=== PATIENT | female | born 1970 | race Caucasian/White ===

== ENCOUNTER 2019-02-10 18:19 | Inpatient (IN) | payer SELFPAY ==
[~2019-02-10] VITALS: Ht 167.6 cm; Wt 95.3 kg
--- OUTSIDE RECORDS SUMMARY | 2019-02-10 18:22 | XMS REPORT ---
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 Allergies, Adverse Reactions, Alerts This patient has no known allergies or adverse reactions. Medications This patient has no known medications. Encounters Start Date/Time End Date/Time Encounter Type Admission Type Attending [facility] Care Department Encounter ID 2019-01-06 11:49:00 2019-01-06 11:49:00 Emergency E [id number] 2018-07-17 00:00:00 2018-07-17 00:00:00 Outpatient [facility] [id number] 2018-07-15 00:00:00 2018-07-15 00:00:00 Outpatient [facility] [id number] 2018-06-11 09:24:07 2018-06-11 09:24:07 Outpatient [facility] [id number] 2018-06-11 08:28:03 2018-06-11 08:28:03 Outpatient [facility] [id number] 2018-06-08 00:00:00 2018-06-08 00:00:00 Outpatient [facility] [id number] 2018-06-04 00:00:00 2018-06-04 00:00:00 Outpatient [facility] [id number] 2018-06-03 00:00:00 2018-06-03 00:00:00 Outpatient [facility] [id number] 2018-06-02 09:07:14 2018-06-02 09:07:14 Outpatient [facility] [id number] 2018-06-01 00:00:00 2018-06-01 00:00:00 Outpatient [facility] [id number] 2018-05-27 08:28:38 2018-05-27 08:28:38 Outpatient [facility] [id number] 2018-05-27 08:28:32 2018-05-27 08:28:32 Outpatient [facility] [id number] 2018-05-19 00:00:00 2018-05-19 00:00:00 Outpatient [facility] [id number] 2018-04-28 00:00:00 2018-04-28 00:00:00 Outpatient [facility] [id number] 2018-04-28 00:00:00 2018-04-28 00:00:00 Outpatient [facility] [id number] 2018-04-20 09:12:38 2018-04-20 09:12:38 Outpatient [facility] [id number] 2018-04-20 07:56:55 2018-04-20 07:56:55 Outpatient [facility] [id number] 2018-04-16 00:00:00 2018-04-16 00:00:00 Outpatient [facility] [id number] 2018-04-14 00:00:00 2018-04-14 00:00:00 Outpatient [facility] [id number] 2018-03-30 08:41:25 2018-03-30 08:41:25 Outpatient [facility] [id number] 2018-03-24 00:00:00 2018-03-24 00:00:00 Outpatient [facility] [id number] 2018-03-23 00:00:00 2018-03-23 00:00:00 Outpatient [facility] [id number] 2018-03-21 00:00:00 2018-03-21 00:00:00 Outpatient [facility] [id number] 2018-03-21 00:00:00 2018-03-21 00:00:00 Outpatient [facility] [id number] 2018-03-09 00:00:00 2018-03-09 00:00:00 Outpatient [facility] [id number] 2018-02-17 00:00:00 2018-02-17 00:00:00 Outpatient [facility] [id number] 2018-02-11 00:00:00 2018-02-11 00:00:00 Outpatient [facility] [id number] 2018-01-29 09:48:55 2018-01-29 09:48:55 Outpatient [facility] [id number] 2018-01-29 00:00:00 2018-01-29 00:00:00 Outpatient [facility] [id number] 2018-01-06 09:52:36 2018-01-06 09:52:36 Outpatient [facility] [id number] 2018-01-06 09:48:18 2018-01-06 09:48:18 Outpatient [facility] [id number] 2018-01-06 08:34:47 2018-01-06 08:34:47 Outpatient [facility] [id number] 2018-01-06 00:00:00 2018-01-06 00:00:00 Outpatient [facility] [id number] 2017-12-17 00:00:00 2017-12-17 00:00:00 Outpatient [facility] [id number] 2017-11-21 13:18:45 2017-11-21 13:18:45 Outpatient [facility] [id number] 2017-10-29 00:00:00 2017-10-29 00:00:00 Outpatient [facility] [id number] 2017-10-17 00:00:00 2017-10-17 00:00:00 Outpatient [facility] [id number] 2017-10-01 00:00:00 2017-10-01 00:00:00 Outpatient [facility] [id number] 2017-09-26 00:00:00 2017-09-26 00:00:00 Outpatient [facility] [id number] 2017-09-25 14:19:49 2017-09-25 14:19:49 Outpatient [facility] [id number] 2017-09-24 08:40:30 2017-09-24 08:40:30 Outpatient [facility] [id number] 2017-09-12 00:00:00 2017-09-12 00:00:00 Outpatient [facility] [id number] 2017-09-11 07:52:20 2017-09-11 07:52:20 Outpatient [facility] [id number] 2017-09-11 00:00:00 2017-09-11 00:00:00 Outpatient [facility] [id number] 2017-09-10 00:00:00 2017-09-10 00:00:00 Outpatient [facility] [id number] 2017-09-08 00:00:00 2017-09-08 00:00:00 Outpatient [facility] [id number] 2017-08-25 08:27:54 2017-08-25 08:27:54 Outpatient [facility] [id number] 2017-08-25 07:13:17 2017-08-25 07:13:17 Outpatient [facility] [id number] 2017-08-11 15:45:10 2017-08-11 15:45:10 Outpatient [facility] [id number] 2017-08-06 00:00:00 2017-08-06 00:00:00 Outpatient [facility] [id number] 2017-07-29 00:00:00 2017-07-29 00:00:00 Outpatient [facility] [id number] 2017-07-24 00:00:00 2017-07-24 00:00:00 Outpatient [facility] [id number] 2017-07-10 19:05:00 2017-07-10 19:05:00 Emergency [facility] [id number] 2017-07-10 17:25:39 2017-07-10 17:25:39 Outpatient [facility] [id number] 2017-07-07 13:11:37 2017-07-07 13:11:37 Outpatient [facility] [id number] 2017-07-03 16:54:51 2017-07-03 16:54:51 Outpatient [facility] [id number] 2017-07-03 15:13:52 2017-07-03 15:13:52 Outpatient [facility] [id number] 2017-06-24 07:10:35 2017-06-24 07:10:35 Outpatient [facility] [id number] 2017-06-18 00:00:00 2017-06-18 00:00:00 Outpatient [facility] [id number] 2017-06-11 16:15:53 2017-06-11 16:15:53 Outpatient [facility] [id number] 2017-06-11 15:38:53 2017-06-11 15:38:53 Outpatient [facility] [id number] 2017-05-11 00:00:00 2017-05-11 00:00:00 Outpatient [facility] [id number] 2017-04-30 07:13:24 2017-04-30 07:13:24 Outpatient [facility] [id number] 2017-04-08 07:01:45 2017-04-08 07:01:45 Outpatient [facility] [id number] 2017-04-07 10:11:41 2017-04-07 10:11:41 Outpatient [facility] [id number] 2017-04-02 00:00:00 2017-04-02 00:00:00 Outpatient [facility] [id number] 2017-03-21 14:55:43 2017-03-21 14:55:43 Outpatient [facility] [id number] 2017-03-20 00:00:00 2017-03-20 00:00:00 Outpatient [facility] [id number] 2017-03-18 10:10:14 2017-03-18 10:10:14 Outpatient [facility] [id number] 2017-03-17 15:56:58 2017-03-17 15:56:58 Outpatient [facility] [id number] 2017-03-17 00:00:00 2017-03-17 00:00:00 Outpatient [facility] [id number] 2017-03-07 08:49:00 2017-03-07 08:49:00 Outpatient [facility] [id number] 2017-03-07 00:00:00 2017-03-07 00:00:00 Outpatient [facility] [id number] 2017-02-28 08:48:24 2017-02-28 08:48:24 Outpatient [facility] [id number] 2017-02-28 00:00:00 2017-02-28 00:00:00 Outpatient [facility] [id number] 2017-02-11 00:00:00 2017-02-11 00:00:00 Outpatient [facility] [id number] 2017-01-22 15:11:42 2017-01-22 15:11:42 Outpatient [facility] [id number] 2017-01-16 00:00:00 2017-01-16 00:00:00 Outpatient [facility] [id number] 2017-01-16 00:00:00 2017-01-16 00:00:00 Outpatient [facility] [id number] 2017-01-15 00:00:00 2017-01-15 00:00:00 Outpatient [facility] [id number] 2017-01-07 00:00:00 2017-01-07 00:00:00 Outpatient [facility] [id number] 2017-01-07 00:00:00 2017-01-07 00:00:00 Outpatient [facility] [id number] 2017-01-06 00:00:00 2017-01-06 00:00:00 Outpatient [facility] [id number] 2016-12-27 09:37:44 2016-12-27 09:37:44 Outpatient [facility] [id number] 2016-12-25 00:00:00 2016-12-25 00:00:00 Outpatient [facility] [id number] 2016-12-19 00:00:00 2016-12-19 00:00:00 Outpatient [facility] [id number] 2016-12-16 11:47:59 2016-12-16 11:47:59 Outpatient [facility] [id number] 2016-12-16 11:00:54 2016-12-16 11:00:54 Outpatient [facility] [id number] 2016-12-06 00:00:00 2016-12-06 00:00:00 Outpatient [facility] [id number] 2016-11-25 15:28:34 2016-11-25 15:28:34 Outpatient [facility] [id number] 2016-11-14 07:54:36 2016-11-14 07:54:36 Outpatient [facility] [id number] 2016-11-13 00:00:00 2016-11-13 00:00:00 Outpatient [facility] [id number] 2016-11-05 00:00:00 2016-11-05 00:00:00 Outpatient [facility] [id number] 2016-11-01 00:00:00 2016-11-01 00:00:00 Outpatient [facility] [id number] 2016-10-31 23:20:39 2016-10-31 23:20:39 Emergency [facility] [id number] 2016-10-31 21:53:47 2016-10-31 21:53:47 Emergency [facility] [id number] 2016-10-31 15:01:06 2016-10-31 15:01:06 Outpatient [facility] [id number] 2016-10-31 00:00:00 2016-10-31 00:00:00 Outpatient [facility] [id number] 2016-10-28 00:00:00 2016-10-28 00:00:00 Outpatient [facility] [id number] 2016-10-25 10:47:34 2016-10-25 10:47:34 Outpatient [facility] [id number] 2016-10-08 11:31:45 2016-10-08 11:31:45 Outpatient [facility] [id number]
--- NOTE | 2019-02-10 19:39 | NUR ---
DR. SOLIS IN TRIAGE FOR PT EVAL.
[2019-02-10] MEDS ORDERED: SODIUM CHLORIDE 0.9% 1000ML 1,000 ML IV STA (19:41)
[2019-02-10] MEDS ORDERED: ONDANSETRON HCL INJ 2MG/ML 2ML 2 MG/ML VIAL IV ONE (19:45)
[2019-02-10] MEDS ORDERED: CEFTRIAXONE SOD 1 GM VIAL IV ONE (19:45)
[2019-02-10] MEDS ORDERED: DEXAMETHASONE SOD PHOS 10 MG/1 ML VIAL IV ONE (19:45)
[2019-02-10] MEDS ORDERED: KETOROLAC TROMETHAMINE 30 MG/ML VIAL IV ONE (19:45)
[2019-02-10 20:09] LABS: BILIRUBIN,URINE NEGATIVE (NEGATIVE); COLOR,URINE YELLOW (YELLOW); KETONES,URINE NEGATIVE (NEGATIVE); LEUKOCYTE ESTERASE ,URINE SMALL (NEGATIVE); NITRITE,URINE NEGATIVE (NEGATIVE); PROTEIN,URINE DIPSTICK NEGATIVE (NEGATIVE); URINE UROBILINOGEN 0.2 mg/dL (0.2 - 1)
[2019-02-10 20:11] LABS: CLARITY,URINE HAZY (CLEAR)
[2019-02-10] MEDS ORDERED: CEFTRIAXONE SOD 1 GM/NS 50 ML 50 ML IV ONE (20:15)
[2019-02-10 20:21] LABS: AMORPHOUS SEDIMENT,URINE MODERATE (FEW); BACTERIA,URINE MANY /HPF; EPITHELIAL CELLS,URINE MANY /LPF
--- NOTE | 2019-02-10 21:26 | Diagnostic Imaging Report ---
Examination: CT BRAIN WO CONTRAST History:Headache; ear swelling. Comparison studies:None Technique: Axial images were obtained from the skull base to the vertex. Coronal and sagittal images reconstructed from the axial data. Dose modulation, iterative reconstruction, and/or weight based adjustment of the mA/kV was utilized to reduce the radiation dose to as low as reasonably achievable. Intravenous contrast: None Findings: Scalp: No abnormalities. Bones: No fractures, blastic or lytic lesions. Brain sulci: Appropriate for age. Ventricles: Normal in size and configuration. No hydrocephalus. Extra-axial space: No abnormalities. Parenchyma: No abnormal densities. No masses, hemorrhage, or acute or chronic cortical based vascular insults.. Sellar/suprasellar region: No abnormalities. Craniocervical junction: Patent foramen magnum. No Chiari one malformation. Incidental findings: None. Impression: No intracranial abnormalities. No abnormality in the visualized bilateral external auditory canals or mastoid air cells. Signed by: Dr. Ileana Barillas M.D. on 02/10/2019 9:22 PM
[2019-02-10 21:48] LABS: BASOPHILS % 0.3 % (0.0-1.0); EOSINOPHILS # (AUTO) 0.1 (0.0-0.4); EOSINOPHILS % 1.1 % (0.0-6.0); HEMATOCRIT 40.7 % (34.2-44.1); HEMOGLOBIN 12.8 g/dL (12.0-16.0); LYMPHOCYTES # (AUTO) 2.9 (1.0-3.2); LYMPHOCYTES % 21.8 % (18.0-39.1); MEAN CORPUSCULAR HEMOGLOBIN 27.4 pg (28-32); MEAN CORPUSCULAR HGB CONC 31.4 g/dL (31-35); MONOCYTES # (AUTO) 0.6 (0.2-0.8); MONOCYTES % 4.9 % (4.4-11.3); NEUTROPHILS # (AUTO) 9.4 (2.1-6.9); NEUTROPHILS % 71.7 % (38.7-80.0); PLATELET COUNT 429 x10e3/uL (140-360); RED BLOOD COUNT 4.68 x10e6/uL (3.6-5.1); RED CELL DISTRIBUTION WIDTH 14.3 % (11.7-14.4)
--- NOTE | 2019-02-10 21:49 | NUR ---
PT STATES SHE HAS ALLERGY TO PENICILLINS BUT HAS HAD ROCEPHIN BEFORE
[2019-02-10 22:05] LABS: ALBUMIN 3.3 g/dL (3.5-5.0); ALBUMIN/GLOBULIN RATIO 0.8 (0.8-2.0); ANION GAP 12.6 mmol/L (8-16); CALCIUM 9.6 mg/dL (8.4-10.2); CREATININE, SERUM 1.14 mg/dL (0.57-1.11); POTASSIUM 3.6 mmol/L (3.5-5.1)
[2019-02-10] MEDS ORDERED: DEXTROSE 50% SYRINGE 50 ML IV PRN (22:30)
[2019-02-10] MEDS ORDERED: IBUPROFEN 200 MG TAB PO PRN (22:30)
[2019-02-10] MEDS ORDERED: ZOLPIDEM TARTRATE 5 MG TAB PO PRN (22:30)
[2019-02-10] MEDS ORDERED: ACETAMINOPHEN 325 MG TAB PO PRN (22:30)
[2019-02-10] MEDS ORDERED: HYDROCODONE/APAP 7.5MG-325MG 1 EA TAB PO PRN (22:30)
[2019-02-10] MEDS ORDERED: DIPHENHYDRAMINE HCL INJ 50 MG/ML VIAL IV PRN (22:30)
[2019-02-11] MEDS: VANCOMYCIN 1GM/NS 250 ML 250 ML IV SCH ×3 (00:23→23:42)
[2019-02-11] MEDS: SODIUM CHLORIDE 0.9% 1000ML 1,000 ML IV SCH ×3 (00:23→18:09)
[2019-02-11] MEDS: MORPHINE SULFATE 2 MG/ML SYR 1ML IV PRN ×3 (03:29→18:18)
--- NOTE | 2019-02-11 07:39 | NUR ---
report given to jordana roberts
--- NOTE | 2019-02-11 08:00 | NUR ---
VERBAL REPORT GIVEN TO OK LEBLANC RN.
--- NOTE | 2019-02-11 08:10 | NUR ---
dr alan at pt bedside
[2019-02-11] MEDS: INSULIN REGULAR, HUMAN 100 UNIT/1 ML 3ML VIAL SQ SCH ×4 (08:18→22:44)
[2019-02-11] MEDS: FAMOTIDINE 20 MG TAB PO SCH ×2 (08:18→18:08)
[2019-02-11] MEDS: CEFTRIAXONE SOD 1 GM/NS 50 ML 50 ML IV SCH ×2 (08:24→22:43)
[2019-02-11] MEDS ORDERED: CEFTRIAXONE SOD 1 GM VIAL IV SCH (09:00)
[2019-02-11] MEDS: CIPROFLOXACIN-DEXAMETHASONE (OTIC) 7.5 ML BOTTLE OT SCH ×2 (10:17→18:08)
--- NOTE | 2019-02-11 10:56 | NUR ---
dr de la garza at pt bedside
--- NOTE | 2019-02-11 14:31 | Consultation ---
DATE OF CONSULTATION: 02/11/2019 Hospital Consultation HISTORY OF PRESENT ILLNESS: I was kindly asked to see this 48-year-old woman for evaluation of possible mastoiditis. She presents with a history of sudden onset of right-sided ear drainage with pus on her pillow, beginning approximately 3 days ago. She had progression of her right-sided ear pain and headache. The pain radiated to behind her ear and down her neck, and was interfering with her ability to open her mouth. She also has mild left-sided ear pain. Prior to this episode, she has no ear drainage. She reports a slight decrease in her hearing and has been having sensations of being lightheaded and off balance, but no true vertigo. She denies tinnitus. Her history of present illness, past medical history, and past surgical history were all reviewed in detail in the chart. PHYSICAL EXAMINATION: The left postauricular area had no pain, swelling, or tenderness. The left pinna was normal. There was a small amount of squamous debris within the left external auditory canal. The left tympanic membrane was mobile and there was no erythema. The right postauricular area had mild tenderness, but there was no edema or erythema. The external auditory canal had a small amount of squamous debris. There was no clear etiology for the history of drainage from the right ear. The visualized portion of the tympanic membrane was not erythematous and was hypomobile. Intranasal examination showed a mild S-shaped nasal septal deviation. The nasal mucosa was normal. Oral cavity examination was normal. There was no posterior pharyngeal wall drainage. She had symmetrical elevation of the soft palate. There was mild trismus. She had tender right-sided jugular digastric region, but no palpable cervical adenopathy. ASSESSMENT: Unclear etiology for this patient's history of right-sided ear drainage and ear pain. There are no physical findings to suggest mastoiditis and CT scan of the head was normal. PLAN: Agree with tentative plans for IV therapy and I will add Ciprodex to the right ear b.i.d. MD BENJI Carr/KAMRAN /[id number]
[2019-02-11 15:29] VITALS: BP 117/72
[2019-02-11 15:41] VITALS: BP 121/69
[2019-02-11 15:42] VITALS: BP 121/69
--- NOTE | 2019-02-11 16:41 | History and Physical ---
CHIEF COMPLAINT: Right ear pain and headaches. HISTORY OF PRESENT ILLNESS: This is a 48-year-old female, chronic smoker, also does significant amount of vaping, also has a history of hypertension, presents to the ED with complaints of headache for 5 days and right ear pain for 3 days. She reports that yesterday she woke up, noticed she had significant amount of pus coming out of her right ear and expressed significant amount of pain. Denies any fever at home. She was recently [place] cruise ship and noticed that she was very dizzy and complained of right ear pain as well. The patient presented to the [facility] for further evaluation and management. ENT has been consulted as well as Infectious Disease. The patient is seen and evaluated at bedside in the emergency room. Currently, she is doing well with no other issues at this time. When she came in, her blood pressure systolically was low and was treated accordingly. Last systolic blood pressure during my evaluation was 108/70. REVIEW OF SYSTEMS: Pertinent positives: Headaches, right ear pain. Pertinent negatives: Denies any chest pain, palpitation, nausea, vomiting, diarrhea, dysuria, hematuria, frequency, urgency, lightheadedness, shortness of breath, cough, congestion, fever, or any other complaints. The rest of 14-point review of systems are reviewed with the patient and are ALLERGIES: PENICILLIN. HOME MEDICATIONS: None. PAST MEDICAL HISTORY: None. PAST SURGICAL HISTORY: None. FAMILY HISTORY: Hypertension and diabetes. SOCIAL HISTORY: No drugs. Smokes cigarettes, but quit, but now she is on vaping. No alcohol. PHYSICAL EXAMINATION: VITAL SIGNS: Temperature is 98.5, pulse 60, respiratory rate is 18, blood pressure is 108/70, and pulse ox 97% on room air. GENERAL: Not in acute distress. Alert and oriented x3. Cooperative on examination. HEENT: Head; normocephalic, atraumatic. Eyes; pupils are equal, round, and reactive to light bilaterally. Extraocular movements intact bilaterally. Throat; no evidence of erythema or exudates in the posterior pharynx. Has poor dentition. Ear exam will defer to the ENT specialist. NECK: Supple. Good range of motion. PULMONARY: Clear to auscultation bilaterally. No wheezing, no rales, no rhonchi, no crackles appreciated. CARDIOVASCULAR: Positive S1 and S2. No murmurs, rubs, or gallops appreciated. ABDOMEN: Soft, nondistended, and nontender to palpation. Bowel sounds present. MUSCULOSKELETAL: Strength is 5/5 throughout. No evidence of any muscle deficits on examination. No weakness appreciated. NEUROLOGIC: Cranial nerves II through XII grossly intact. No evidence of any neurological deficits on exam. SKIN: Intact. Warm to touch. Good cap refill. PSYCHIATRIC: Normal affect and mood. EXTREMITIES: No edema. Good range of motion throughout. LABORATORY FINDINGS: Show white count 13, hemoglobin 12.8, hematocrit 41, and platelets of 429. Chemistry; sodium 136, potassium 3.6, chloride 100, bicarb 27, anion gap of 12, BUN is 14, creatinine is 1.1, glucose 141, and calcium 9.6. Total bilirubin is 0.6, AST 17, ALT 16, and alkaline phosphatase 147. Total protein 7.5 and albumin 3.3. Urinalysis, many bacteria, 6 to 10 wbc's. MICROBIOLOGY: Blood cultures were pending. IMAGING STUDIES: CT brain, no intracranial abnormality. No abnormalities visualized in the bilateral external auditory canals or mastoid air cells. IMPRESSION: 1. Acute otitis media in the right ear. 2. Headaches, likely secondary to #1. 3. Chronic smoker. PLAN: At this time, ENT came and evaluated the patient already. His note is not present at this time, but per the patient seems like she has an inner ear infection. She is on IV antibiotics, Rocephin and vancomycin. ID will be consulted to further evaluate and manage. She also has Cipro ear drops that is already ordered by ENT. We will continue with pain control for now. Monitor blood cultures. Follow with ENT and ID recommendations. Put on Lovenox for DVT prophylaxis. She is on a regular diet. MD ENRIQUETA Shaw/KAMRAN /[id number]
[2019-02-11] MEDS ORDERED: ENOXAPARIN SOD INJ 40 MG/0.4 ML SYR SC SCH (17:00)
[2019-02-11] MEDS: ENOXAPARIN SOD INJ 40 MG/0.4 ML SYR SC SCH (18:08)
[2019-02-11] MEDS: ONDANSETRON HCL INJ 2MG/ML 2ML 2 MG/ML VIAL IV PRN (18:18)
[2019-02-11] MEDS ORDERED: METFORMIN HCL500 MG PO (18:54)
[2019-02-11] MEDS ORDERED: LYRICA50 MG PO (18:55)
[2019-02-11] MEDS ORDERED: TYLENOL WITH C1 EACH PO (18:56)
[2019-02-11] MEDS ORDERED: ALBUTEROL0.63 MG/3 INH (19:01)
[2019-02-11] MEDS ORDERED: LEVOTHYROXINE50 MCG PO (19:01)
[2019-02-11] MEDS ORDERED: ZYRTEC10 M3 PO (19:07)
[2019-02-11] MEDS ORDERED: ATENOLOL50 MG PO (19:18)
[2019-02-11 20:00] VITALS: BP 97/72
[2019-02-11 20:30] VITALS: BP 94/72
--- NOTE | 2019-02-11 21:18 | Consultation ---
DATE OF CONSULTATION: REASON FOR CONSULTATION: Otitis media infection of the ear. HISTORY OF PRESENT ILLNESS: This patient, who is a very pleasant 48-year-old female, comes in with right ear pain started few days ago. Her pain then got progressively worse. She noted there was pus coming on her pillow. She was also found to have headache. There was no double vision. She has some nausea. She said the pain was getting progressively worse and had to come in the emergency room. In the emergency room, she came and she was seen by ENT already. I was asked to see her to make recommendation in terms of antibiotic. The patient is telling me she is allergic to penicillin. The patient is being admitted and I was asked to see her. PAST MEDICAL HISTORY: Hypertension and diabetes. PAST SURGICAL HISTORY: She denies. ALLERGIES: PENICILLIN, BUT SHE DID WELL WITH CEPHALOSPORIN. MEDICATIONS: The patient is currently on insulin, Benadryl, vancomycin, ceftriaxone, and Motrin. LABORATORY DATA: White count is 13.1 and hemoglobin 12.8. Her sodium 136, potassium 3.6, creatinine 1.14, and glucose 141. The patient had CT of the head, which showed no abnormal densities, no intracranial abnormalities. REVIEW OF SYSTEMS: Beside what mentioned above, she denies. PHYSICAL EXAMINATION: GENERAL: She is currently alert and oriented. Does not seem to be in acute distress. VITAL SIGNS: Stable, currently afebrile. HEENT: She is not icteric. Normocephalic. She did have some tenderness and pain on the right side of the ear. NECK: Supple. No JVD. No lymphadenopathy. No thyromegaly. CHEST: Clear bilateral. HEART: S1 and S2. No S3, S4, or murmurs. ABDOMEN: Soft. Bowel sounds present. No tenderness. EXTREMITIES: No edema. The patient has been seen by ENT and examined fully. Please refer to a note, discussed with him. IMPRESSION: Drainage from the ear, right ear pain, maybe otitis media. She is currently on vancomycin and Rocephin, and also ear drop of Ciprodex. CAT scan does not reveal involvement of the bone. We will observe the patient clinically day or 2. Can switch to oral Keflex and doxycycline once clinically stable. We will reassess and follow with you. Thank you for asking me to see this patient. MD WHIT Coulter /[id number]
[2019-02-12] VITALS (8 sets, daily range): BP systolic 87–122; BP diastolic 53–67
[2019-02-12 06:40] LABS: BASOPHILS % 0.2 % (0.0-1.0); EOSINOPHILS % 0.1 % (0.0-6.0); HEMATOCRIT 35.2 % (34.2-44.1); LYMPHOCYTES # (AUTO) 2.8 (1.0-3.2); LYMPHOCYTES % 14.9 % (18.0-39.1); MEAN CORPUSCULAR HEMOGLOBIN 28.1 pg (28-32); MEAN CORPUSCULAR HGB CONC 31.3 g/dL (31-35); MONOCYTES # (AUTO) 0.9 (0.2-0.8); NEUTROPHILS # (AUTO) 14.8 (2.1-6.9); NEUTROPHILS % 79.3 % (38.7-80.0); PLATELET COUNT 309 x10e3/uL (140-360); RED BLOOD COUNT 3.91 x10e6/uL (3.6-5.1); RED CELL DISTRIBUTION WIDTH 14.6 % (11.7-14.4)
[2019-02-12 06:48] LABS: BLOOD UREA NITROGEN 16 mg/dL (7-26); BUN/CREATININE RATIO 18 (6-25); CALCIUM 8.7 mg/dL (8.4-10.2); CARBON DIOXIDE 22 mmol/L (22-29); CHLORIDE 108 mmol/L (98-107); CREATININE, SERUM 0.91 mg/dL (0.57-1.11); EST GLOMERULAR FILTRATION RATE > 60 ML/MIN (60-); GLUCOSE 150 mg/dL (74-118); SODIUM 137 mmol/L (136-145)
--- NOTE | 2019-02-12 07:22 | NUR ---
report given to day nurse. patient is resting comfortably in bed. bed is in lowest position and call light is within reach.
[2019-02-12] MEDS: INSULIN REGULAR, HUMAN 100 UNIT/1 ML 3ML VIAL SQ SCH ×4 (07:30→21:00)
--- NOTE | 2019-02-12 07:32 | NUR ---
PATIENT IN BED RESTING WITH EYES CLOSED, NO RESPIRATORY DISTRESS OBSERVED. IV FLUID INFUSING ORDERED. BED IN LOWER POSITION, CALL LIGHT AT REACH.
--- NOTE | 2019-02-12 07:45 | NUR ---
GAVE PACKET OF INFORMATION WITH [facility] [employer] FOR ASSISTANCE WITH LOW TO NO INCOME TO PATIENT. RESOURCES THAT PATIENT MAY BE ABLE TO FOLLOW UP UPON DISCHARGE. PT EDUCATED ON EACH RESOURCE AND UNDERSTANDING HOW TO FOLLOW UP TO SEE IF QUALIFIED FOR EACH RESOURCE.
[2019-02-12] MEDS: FAMOTIDINE 20 MG TAB PO SCH ×2 (07:52→16:30)
[2019-02-12] MEDS: CIPROFLOXACIN-DEXAMETHASONE (OTIC) 7.5 ML BOTTLE OT SCH ×2 (09:25→17:30)
[2019-02-12] MEDS: CEFTRIAXONE SOD 1 GM/NS 50 ML 50 ML IV SCH ×2 (09:25→21:00)
[2019-02-12] MEDS: VANCOMYCIN 1GM/NS 250 ML 250 ML IV SCH ×2 (10:38→22:10)
[2019-02-12] MEDS ORDERED: SODIUM CHLORIDE 0.9% 1000ML 1,000 ML IV ONE ×3 (11:00→13:00)
[2019-02-12] MEDS ORDERED: ALBUTEROL/IPRATROPIUM 3 ML NEB NEB PRN (11:00)
[2019-02-12] MEDS ORDERED: SCOPOLAMINE 1.5 MG PATCH TOP NR (11:00)
--- NOTE | 2019-02-12 12:08 | Diagnostic Imaging Report ---
EXAM: CT Chest WITH contrast- Pulmonary Embolism Protocol INDICATION: Shortness of breath, hypotension COMPARISON: None TECHNIQUE: Chest was scanned utilizing a multidetector helical scanner from the lung apex through the level of the diaphragm after administration of IV contrast. Thin section reconstructions were obtained with special concentration on the pulmonary arteries. Coronal and sagittal reformations were obtained. Pulmonary embolism protocol was performed. IV CONTRAST: 100 cc of Isovue 370 RADIATION DOSE: Total DLP: 459.8 mGy*cm Dose modulation, iterative reconstruction, and/or weight based adjustment of the mA/kV was utilized to reduce the radiation dose to as low as reasonably achievable. COMPLICATIONS: None FINDINGS: LINES/ TUBES: None. PULMONARY ARTERIES: No filling defect is identified within the pulmonary arteries to the segmental level. The subsegmental pulmonary arteries are not well opacified. Main pulmonary artery measures 2.7 in diameter. LUNGS AND AIRWAYS: The central airways are patent. No focal consolidation. No pulmonary edema. No suspicious pulmonary nodules. Mild bibasilar dependent subsegmental atelectasis. PLEURA: The pleural spaces are clear. HEART AND MEDIASTINUM: Evaluation of the thyroid gland is limited by streak artifact related to contrast in the left subclavian vein. The visualized portions of the thyroid gland appear unremarkable. No supraclavicular, mediastinal, hilar, or axillary lymphadenopathy. The heart is not enlarged. No evidence of right heart strain. No pericardial effusion. UPPER ABDOMEN: The contrast-enhanced images of the upper abdomen demonstrate no focal abnormality in the partially visualized liver, spleen, pancreatic tail. Adrenals and kidneys not visualized. BONES: No acute osseous injury. No suspicious lytic or blastic lesions. SOFT TISSUES: Unremarkable. IMPRESSION: No pulmonary embolism. Signed by: Daljit Ho MD on 02/12/2019 12:05 PM
--- NOTE | 2019-02-12 12:14 | NUR ---
MD IN TO SEE PATIENT, NEW ORDERS RECEIVED.
[2019-02-12] MEDS: MIDODRINE 2.5 MG TAB PO SCH ×2 (12:50→16:30)
[2019-02-12] MEDS: MORPHINE SULFATE 2 MG/ML SYR 1ML IV PRN (13:15)
[2019-02-12] MEDS: ONDANSETRON HCL INJ 2MG/ML 2ML 2 MG/ML VIAL IV PRN (13:15)
--- NOTE | 2019-02-12 14:07 | Progress Note ---
DATE: 02/12/2019 SUBJECTIVE: The patient reports being short of breath today. She reports that when she ambulates, she gets shortness of breath. She is a chronic smoker and has been smoking for a significant number of years, but quit five years goes which she reports. PHYSICAL EXAMINATION: VITAL SIGNS: Temperature is 95.6, pulse 64, respiratory rate 19, last blood pressure recorded was 87/57, pulse ox 99% on room air. GENERAL: Not in acute distress. Alert and oriented x3. Cooperative on examination. HEENT: Head; normocephalic, atraumatic. Eyes; pupils are equal, round, and reactive to light bilaterally. Extraocular movements intact bilaterally. Throat; no evidence of erythema or exudates in the posterior pharynx. Has poor dentition. NECK: Supple. Good range of motion. PULMONARY: Clear to auscultation bilaterally. No wheezing, no rales, no rhonchi, no crackles appreciated. CARDIOVASCULAR: Positive S1 and S2. No murmurs, rubs, or gallops appreciated. ABDOMEN: Soft, nondistended, and nontender to palpation. Bowel sounds present. MUSCULOSKELETAL: Strength is 5/5 throughout. No evidence of any muscle deficits on examination. No weakness appreciated. NEUROLOGIC: Cranial nerves II through XII grossly intact. No evidence of any neurological deficits on exam. SKIN: Intact. Warm to touch. Good cap refill. PSYCHIATRIC: Normal affect and mood. EXTREMITIES: No edema. Good range of motion throughout. LABORATORY DATA: Lab finding show white count is 18.6, hemoglobin 11, hematocrit 35, platelets was 309. Chemistries reviewed were stable. MICROBIOLOGY: Blood cultures no growth. IMPRESSION: 1. Acute otitis media on the right ear, also with underlying mastoiditis. 2. Dizziness, likely secondary to acute otitis media on the right ear, also with underlying mastoiditis. 3. Headaches, likely secondary to acute otitis media on the right ear, also with underlying mastoiditis. 4. Chronic smoker, also does vaping. 5. Leukocytosis, concern for underlying infection. 6. Shortness of breath. PLAN: At this time, she continues to be on IV antibiotics, being managed by ENT and ID. She is also on inner ear antibiotics as well. As for the white count, I am not sure if this is concerns for worsening infection. I will go ahead and get repeat labs in the morning. Get now stat lactic acid and procalcitonin. I did notice her blood pressure was low. I am going to go and give her a normal saline bolus 1 L now and add her on oral midodrine as well. We will also add scopolamine patch for the underlying dizziness. As for her shortness of breath, I am going to order a stat CTA, rule out PE and get a Pulmonary consultation. She is on neb treatments right now. I am going to add some possible Lasix thereafter. Otherwise, we will continue to follow up with consultants, ENT, ID, and Pulmonary. She is on Lovenox for DVT prophylaxis as well. MD ENRIQUETA Shaw/KAMRAN /[id number]
--- NOTE | 2019-02-12 14:16 | Progress Note ---
DATE: ADDENDUM: According to the ENT's note, this is not mastoiditis. Please clarify that, this is acute otitis media what is stating. According to ENT's note, there is no evidence of any mastoiditis. MD ENRIQUETA Shaw/KAMRAN /[id number]
[2019-02-12] MEDS: ENOXAPARIN SOD INJ 40 MG/0.4 ML SYR SC SCH (15:30)
[2019-02-12] MEDS ORDERED: SODIUM CHLORIDE 0.9% 50ML 50 ML ONE (15:47)
[2019-02-12] MEDS ORDERED: IOPAMIDOL 370 MG/ML 200 ML INFUS..BTL INJ ONE (15:47)
[2019-02-12] MEDS: SODIUM CHLORIDE 0.9% 1000ML 1,000 ML IV SCH (16:00)
--- NOTE | 2019-02-12 16:36 | NUR ---
PATIENT C/O SOB WITH AMBULATION. NOTIFIED, NEW ORDER RECEIVED.
--- NOTE | 2019-02-12 19:15 | NUR ---
patient received awake, alert, lying quietly in bed. vss. no c/o pain noted. pm assessment complete. patient instructed to call for assistance when needed.
--- NOTE | 2019-02-12 21:58 | Consultation ---
DATE OF CONSULTATION: 02/12/2019 Pulmonary Medicine Consult REASON FOR REFERRAL: Shortness of breath. HISTORY OF PRESENT ILLNESS: Ms. Willams is a pleasant 48-year-old female with shortness of breath. The patient was admitted to [facility] on February 10, 2019. The patient had a history of 5 days of ear pain, even some drainage from the right ear. She has been diagnosed with ENT pathology, whether vestibulitis, mastoiditis, or other otitis. Simultaneously, she complained of some shortness of breath upon going to the restroom, where she was short of breath. The patient therefore required Pulmonary consult for evaluation. The patient with history of childhood asthma. She was diagnosed about 12 years of age. She was on Proventil p.r.n., albuterol nebs, Advair Diskus twice a day. The patient with history of perennial allergies and she takes Zyrtec on many days. The patient with history of GERD about twice a week and she is on [id number] antacids for this. She was born normally. The patient was recently diagnosed with COPD this year when she was hospitalized for 8 days at an outside hospital facility. On a good day, she can walk 1-1/2 blocks, but on bad day, she could walk about 1 room distance. She has home oxygen at home, although she does check her oxygen saturations, which can be 95% on many good days. She owns her own pulse oximeter. The patient has been vaping on and off for about 5 years and she uses nicotine in flavored vapors. She does it about 6 times per day. PAST MEDICAL HISTORY: Reported COPD, asthma, perennial allergies, mild GERD. MEDICATIONS: Reviewed per outside record. ALLERGIES: PENICILLIN. SOCIAL HISTORY: No alcohol. No drugs. The patient vapes. She smoked from age 13 to 43, two packs per day. She lives in [place]. FAMILY HISTORY: Noncontributory to this. REVIEW OF SYSTEMS: GENERAL: No weight changes. OPHTHALMOLOGIC: No double vision. ENT: No mouth ulcers. ENDOCRINE: No known thyroid disease. PULMONARY: No hemoptysis. There is history of some lung nodule on outside CT scan done when she was hospitalized. CARDIAC: No heart attack. GI: No constipation. : No blood in urine. DERMATOLOGIC: No rash. PSYCHIATRIC: No depression. PHYSICAL EXAMINATION: VITAL SIGNS: Afebrile, vital signs noted and reviewed per the chart record. GENERAL: In no acute distress. Alert and calm. HEENT: Normocephalic and atraumatic. NECK: Supple. Throat midline. LUNGS: Bilateral air entry is moderate, mostly unremarkable. CARDIOVASCULAR: S1, S2. No murmurs, rubs, or gallops. ABDOMEN: Soft and nontender. EXTREMITIES: No clubbing. No cyanosis. There is no edema. INTEGUMENT: No rash. No purpura. LABORATORY DATA: Bicarbonate 22, creatinine 0.9. White count 9.2, hematocrit 35. IMPRESSION AND PLAN: 1. Chronic obstructive pulmonary disease, no definite exacerbation. 2. Admit for right ENT ear pathology. 3. History of asthma. 4. Perennial allergies. 5. Mild gastroesophageal reflux disease. 6. Former smoker, quit 5 years ago. 7. Exposure to environmental substances, vaping daily. 8. Shortness of breath, multifactorial, but more likely from chronic obstructive pulmonary disease as well as deconditioning. At this time, followed the patient functionally. She needs to mobilize or else she will get weaker. We will consider need for chest x-ray if it appears that she did not recover towards her baseline status or functionality. She needs outpatient workup. She needs review of the outside CAT scan, which was done at [facility]. We need to see also if she had thyroid testing. Consideration for other workup based on initial findings. Continue inhalers as she has been doing it and she has home oxygen as backup she says. Thank you very much, Dr. La, for this consult. Please call for questions. MD BELKIS Garrido/KAMRAN /[id number]
[2019-02-13] VITALS (8 sets, daily range): BP systolic 91–116; BP diastolic 51–83
[2019-02-13 06:11] LABS: BASOPHILS % 0.3 % (0.0-1.0); EOSINOPHILS # (AUTO) 0.1 (0.0-0.4); EOSINOPHILS % 0.5 % (0.0-6.0); HEMATOCRIT 32.6 % (34.2-44.1); HEMOGLOBIN 9.7 g/dL (12.0-16.0); LYMPHOCYTES # (AUTO) 3.2 (1.0-3.2); LYMPHOCYTES % 32.3 % (18.0-39.1); MEAN CORPUSCULAR HGB CONC 29.8 g/dL (31-35); MEAN CORPUSCULAR VOLUME 90.8 fL (81-99); MONOCYTES # (AUTO) 0.7 (0.2-0.8); MONOCYTES % 6.7 % (4.4-11.3); NEUTROPHILS # (AUTO) 5.8 (2.1-6.9); NEUTROPHILS % 59.5 % (38.7-80.0); PLATELET COUNT 305 x10e3/uL (140-360); RED BLOOD COUNT 3.59 x10e6/uL (3.6-5.1); RED CELL DISTRIBUTION WIDTH 15.1 % (11.7-14.4)
[2019-02-13 06:33] LABS: ANION GAP 10.4 mmol/L (8-16); CALCIUM 8.3 mg/dL (8.4-10.2); CREATININE, SERUM 1.12 mg/dL (0.57-1.11); POTASSIUM 4.4 mmol/L (3.5-5.1)
--- NOTE | 2019-02-13 07:24 | NUR ---
PATIENT IN BED RESTING WITH NO S/S OF DISTRESS. SCD IN PLACE, IV FLUID INFUSING ORDERED. BED IN LOWER POSITION, CALL LIGHT AT REACH.
[2019-02-13] MEDS: INSULIN REGULAR, HUMAN 100 UNIT/1 ML 3ML VIAL SQ SCH ×4 (07:30→20:58)
[2019-02-13] MEDS: FAMOTIDINE 20 MG TAB PO SCH ×2 (07:51→16:30)
[2019-02-13] MEDS: SODIUM CHLORIDE 0.9% 1000ML 1,000 ML IV SCH (08:41)
[2019-02-13] MEDS: MIDODRINE 2.5 MG TAB PO SCH ×2 (08:45→12:57)
[2019-02-13] MEDS: CEFTRIAXONE SOD 1 GM/NS 50 ML 50 ML IV SCH ×2 (09:59→21:00)
[2019-02-13] MEDS: CIPROFLOXACIN-DEXAMETHASONE (OTIC) 7.5 ML BOTTLE OT SCH ×2 (10:00→17:28)
[2019-02-13] MEDS: VANCOMYCIN 1GM/NS 250 ML 250 ML IV SCH ×2 (11:00→22:23)
--- NOTE | 2019-02-13 11:05 | NUR ---
PATIENT ASSISTED TO THE RESTROOM AND BACK TO BED. HAD A BM, CALL LIGHT AT REACH. INSTRUCTED TO CALL FOR ASSISTANCE NEEDED.
[2019-02-13] MEDS: ONDANSETRON HCL INJ 2MG/ML 2ML 2 MG/ML VIAL IV PRN ×2 (12:15→23:30)
[2019-02-13] MEDS: MORPHINE SULFATE 2 MG/ML SYR 1ML IV PRN ×2 (12:15→23:30)
--- NOTE | 2019-02-13 13:47 | NUR ---
PULMONARY MEDICINE DATE: 02/13/19 SUBJECTIVE: CT chest without significant radiographic emphysema, mild pleural thickening at base, mostly unremarkable. no nodules on CT chest some SOB still REVIEW OF SYSTEMS: no rash, no bleeding PHYSICAL EXAMINATION: VITAL SIGNS: vital signs noted and reviewed per the chart record. GENERAL: NAD, Alert and calm. HEENT: Normocephalic and atraumatic. NECK: Supple. Throat midline. LUNGS: Bilateral air entry is moderate, mostly unremarkable. CARDIOVASCULAR: S1, S2. No murmurs, rubs, or gallops. ABDOMEN: Soft and nontender. EXTREMITIES: No clubbing. No cyanosis. no edema. INTEGUMENT: No rash. No purpura. LABORATORY DATA: hco3 25, cr 1.1. wbc 10 IMPRESSION AND PLAN: 1. Chronic obstructive pulmonary disease, no definite exacerbation. 2. Admit for right ENT ear pathology. 3. History of asthma. 4. Perennial allergies. 5. Mild gastroesophageal reflux disease. 6. Former smoker, quit 5 years ago. 7. Exposure to environmental substances, vaping daily. 8. Shortness of breath, multifactorial, but more likely from chronic obstructive pulmonary disease as well as deconditioning. Mobilize Outpatient workup of lung disease, previous hospital physicians told her she has COPD Check TSH Continue inhalers, hx good subjective responsiveness Patient has home oxygen as backup, follow up O2 saturations while in the hospital Thank you very much, Dr. La, for this consult. Please call for questions.
--- NOTE | 2019-02-13 16:04 | NUR ---
PATIENT C/O SOB. MD IN TO SEE PATIENT, WAS NOTIFIED, NEW ORDER RECEIVED.
--- NOTE | 2019-02-13 16:27 | Progress Note ---
DATE: 02/13/2019 Medicine Progress Note SUBJECTIVE: I spoke with Dr. Ford, ENT. He told me that there is no evidence of any inner ear infection at all. Otherwise, the patient can potentially from his standpoint to be discharged. No further workup needed by ENT. Otherwise, the patient states she is feeling much better today with no complaints. PHYSICAL EXAMINATION: VITAL SIGNS: Temperature is 97.4, pulse 46, respiratory rate is 18, blood pressure is 99/63. This is her baseline chronically. O2 saturations 98% on room air. GENERAL: Not in acute distress. Alert and oriented x3. Cooperative on examination. HEENT: Head; normocephalic, atraumatic. Eyes; pupils are equal, round, and reactive to light bilaterally. Extraocular movements intact bilaterally. Throat; no evidence of erythema or exudates in the posterior pharynx. Has poor dentition. NECK: Supple. Good range of motion. PULMONARY: Clear to auscultation bilaterally. No wheezing, no rales, no rhonchi, no crackles appreciated. CARDIOVASCULAR: Positive S1 and S2. No murmurs, rubs, or gallops appreciated. ABDOMEN: Soft, nondistended, and nontender to palpation. Bowel sounds present. MUSCULOSKELETAL: Strength is 5/5 throughout. No evidence of any muscle deficits on examination. No weakness appreciated. NEUROLOGIC: Cranial nerve II through XII grossly intact. No evidence of any neurological deficits on exam. SKIN: Intact. Warm to touch. Good cap refill. PSYCHIATRIC: Normal affect and mood. EXTREMITIES: No edema. Good range of motion throughout. LABORATORY FINDINGS: Show white count 9.7, hemoglobin 9.7, hematocrit is 33, platelets of 305. Chemistry; sodium 143, potassium 4.4, chloride 112, bicarb 25, anion gap 10, BUN 17, creatinine is 1.1, glucose is 112, calcium is 8.3. LFTs were within normal range. MICROBIOLOGY: Blood cultures are negative. IMAGING STUDIES: CT of the chest showed no evidence of any pulmonary embolism. IMPRESSION: 1. Dizziness, now resolved, no evidence of ear infection or any evidence of mastoiditis as I have confirmed this with ENT, Dr. Ford. 2. Headaches, resolved. 3. Probable chronic obstructive pulmonary disease due to chronic smoking. 4. Leukocytosis, resolved. PLAN: At this time, from an ENT standpoint, there is no further workup needed as I discussed this with Dr. Ford. There is no evidence of any infection and she does not need anything from his standpoint. As further white count being elevated, it actually improved on IV antibiotics, being managed by ID. All cultures were found to be negative. CTA of the chest was negative for any PE. Pulmonary was consulted. Recommend thinking this is likely to be COPD and initiated inhalers. At this time, she seems to be doing very well. Repeat labs in the morning. If everything comes back to be negative, we will go ahead and discharge her to home. I have actually to talked to the patient at bedside with the nurse. I think there is no further workup needed at this time. We will go ahead and monitor very closely one more night and if she is stable and cleared by the consultants, we will discharge home. MD ENRIQUETA Shaw/KAMRAN /[id number]
[2019-02-13] MEDS: ALBUTEROL/IPRATROPIUM 3 ML NEB NEB SCH ×2 (17:15→19:20)
[2019-02-13] MEDS: ENOXAPARIN SOD INJ 40 MG/0.4 ML SYR SC SCH (17:21)
--- NOTE | 2019-02-13 19:15 | NUR ---
patient received awake, alert, lying quietly in bed. no c/o pain noted. ivf continue to infuse without difficulty. pm assessment complete. patient instructed to call for assistance when needed.
--- NOTE | 2019-02-13 20:58 | NUR ---
patient refuses blood sugar check at this time.
--- NOTE | 2019-02-13 23:30 | NUR ---
patient medicated with morphine 2mg and zofran 4mg ivp for c/o chest, leg and back pain 11/18 at this time per patients request.
[2019-02-14] VITALS: BP 102/65
[2019-02-14] MEDS: ALBUTEROL/IPRATROPIUM 3 ML NEB NEB SCH ×3 (02:15→13:20)
[2019-02-14 04:00] VITALS: BP 95/65
[2019-02-14 07:20] VITALS: BP 106/53
--- NOTE | 2019-02-14 07:27 | NUR ---
PATIENT IN BED RESTING WITH EYES CLOSED, NO RESPIRATORY DISTRESS OBSERVED. BED IN LOWER POSITION, CALL LIGHT AT REACH.
[2019-02-14] MEDS: INSULIN REGULAR, HUMAN 100 UNIT/1 ML 3ML VIAL SQ SCH ×2 (07:30→11:30)
[2019-02-14 07:42] LABS: BASOPHILS % 0.2 % (0.0-1.0); EOSINOPHILS # (AUTO) 0.1 (0.0-0.4); EOSINOPHILS % 0.6 % (0.0-6.0); HEMATOCRIT 34.3 % (34.2-44.1); HEMOGLOBIN 10.5 g/dL (12.0-16.0); LYMPHOCYTES # (AUTO) 2.6 (1.0-3.2); LYMPHOCYTES % 28.3 % (18.0-39.1); MEAN CORPUSCULAR HEMOGLOBIN 27.5 pg (28-32); MEAN CORPUSCULAR HGB CONC 30.6 g/dL (31-35); MEAN CORPUSCULAR VOLUME 89.8 fL (81-99); MONOCYTES # (AUTO) 0.6 (0.2-0.8); MONOCYTES % 7.1 % (4.4-11.3); NEUTROPHILS # (AUTO) 5.7 (2.1-6.9); NEUTROPHILS % 63.5 % (38.7-80.0); PLATELET COUNT 264 x10e3/uL (140-360); RED BLOOD COUNT 3.82 x10e6/uL (3.6-5.1); RED CELL DISTRIBUTION WIDTH 15.2 % (11.7-14.4)
[2019-02-14 08:00] VITALS: BP 106/53
[2019-02-14] MEDS: FAMOTIDINE 20 MG TAB PO SCH (08:00)
[2019-02-14 08:21] LABS: ANION GAP 11.9 mmol/L (8-16); BLOOD UREA NITROGEN 14 mg/dL (7-26); BUN/CREATININE RATIO 14 (6-25); CALCIUM 8.2 mg/dL (8.4-10.2); CARBON DIOXIDE 23 mmol/L (22-29); CHLORIDE 109 mmol/L (98-107); CREATININE, SERUM 0.97 mg/dL (0.57-1.11); EST GLOMERULAR FILTRATION RATE > 60 ML/MIN (60-); GLUCOSE 95 mg/dL (74-118); POTASSIUM 3.9 mmol/L (3.5-5.1); SODIUM 140 mmol/L (136-145)
[2019-02-14] MEDS: CIPROFLOXACIN-DEXAMETHASONE (OTIC) 7.5 ML BOTTLE OT SCH (09:08)
[2019-02-14] MEDS: CEFTRIAXONE SOD 1 GM/NS 50 ML 50 ML IV SCH (09:08)
--- NOTE | 2019-02-14 11:59 | NUR ---
PATIENT REFUSED FINGER STICK X2. EDUCATED ABOUT THE IMPORTANCE OF BLOOD SUGAR CONTROL, SHE STATED "MY FINGERS ARE OVERUSED". CALL LIGHT AT REACH.
[2019-02-14 12:00] VITALS: BP 110/68
--- NOTE | 2019-02-14 12:37 | NUR ---
SPOKE WITH MD REGARDING ABNORMAL VANC TROUGH. ORDER RECEIVED TO HOLD.
--- NOTE | 2019-02-14 15:27 | Discharge Summary ---
FINAL DISCHARGE DIAGNOSES: 1. Dizziness, resolved, there was no evidence of any kind of ear infection or any evidence of mastoiditis. I confirmed this with ENT, Dr. Ford. There was no concern for any type of infection in the ears. 2. Headaches, resolved. 3. Probable chronic obstructive pulmonary disease from chronic smoking. 4. Leukocytosis, resolved. CONSULTANTS: 1. ID-recommends no antibiotics on discharge. 2. ENT: No further recommendations needed. 3. Pulmonary-inhalers in which the patient already has at home and this is all likely due to COPD. PHYSICAL EXAMINATION: VITAL SIGNS: Temperature is 97.1, pulse 95, respiratory rate is 20, blood pressure 110/60, and pulse ox is 95% on room air. LABORATORY FINDINGS: Show white count 9, hemoglobin 10.5, hematocrit is 34, platelets of 264. Chemistry; sodium 140, potassium 3.9, chloride 109, bicarb 23, anion gap of 11, BUN 14, creatinine 0.97, glucose is 95, calcium is 8.2. Total bilirubin is 0.6, AST is 17, ALT is 16, alkaline phosphatase 147. Troponins were negative. Albumin was 3.3. Urinalysis negative. MICROBIOLOGY: Blood cultures were negative. IMAGING STUDIES: CT brain, no intracranial abnormality. No abnormality in the visualized bilateral external auditory canals or mastoid air cells. CT chest, PE protocol shows no evidence of pulmonary embolism. HOSPITAL COURSE: This is a 48-year-old female, came into the emergency room with complaints of inner ear pain as well as dizziness. Initial thought that the patient may have had an ear infection, which ENT was consulted. Imaging study shows no evidence of inner ear infection as well. There was no evidence of any mastoiditis. ENT was consulted and as per ENT's recommendations and after I spoke with the ENT, there was no evidence of any sort of infection in her inner ear or any evidence of mastoiditis. The patient was cleared for discharge by ENT with no antibiotics needed. ID was consulted as well and she was on broad-spectrum IV antibiotics. Her cultures were negative. As per ID recommendations, no further antibiotics were needed upon discharge. She was also complaining of shortness of breath, which Pulmonary was consulted. It is felt the patient likely has COPD from long-standing smoking. She does not follow up and she is very noncompliant with followup with the PCP according to the patient. Pulmonary recommended inhalers, which she already has inhalers at home from her mother. At this time, she has been cleared for discharge by all consultants including the ENT, ID, and Pulmonary. On the day of discharge, vital signs were stable, labs reviewed and stable. The patient is seen and evaluated, and examined thoroughly on the day of discharge. No other complaints. The patient verbalized understanding and agrees to plan of care to follow up accordingly as an outpatient with the primary care physician in 1 week and ENT, ID, and Pulmonary in 2 weeks' time. MEDICATIONS: See med reconciliation form. DISPOSITION: To home. CONDITION: Stable. DIET: Heart healthy. In the event of any worsening symptoms, the patient advised to come back to the ED for further evaluation. Discharge summary took greater than 35 minutes. MD ENRIQUETA Shaw/KAMRAN /[id number]
[2019-02-14 16:00] VITALS: BP_SYST 107; BP_SYST 110; BP_DIAS 61; BP_DIAS 68
--- NOTE | 2019-02-14 16:00 | NUR ---
PATIENT DISCHARGED HOME. DISCHARGE INSTRUCTIONS AND FOLLOW UP GIVEN TO PATIENT, SHE VERBALIZED UNDERSTANDING. IV TO RIGHT FOREARM REMOVED WITH TIP INTACT. ALL PERSONAL ITEMS TAKEN WITH PATIENT. LEFT UNIT PER WHEEL CHAIR TO FRONT LOBBY IN STABLE CONDITION.
== END 2019-02-14 16:00 | disposition home or self-care (01) | DRG 153 ==
LOC: EDBD 18:19 → ER 18:19 → ERHOLD 23:23 → MED/SURG3 02-11 15:01
PROVIDERS: ADMIT Internal Medicine; ATTEND Internal Medicine
DX: H65.01 Acute serous otitis media, right ear (principal); R51 Headache; J44.9 Chronic obstructive pulmonary disease, unspecified; Z91.19 Patient's noncompliance with other medical treatment and regimen; F17.290 Nicotine dependence, other tobacco product, uncomplicated; I95.9 Hypotension, unspecified; D72.829 Elevated white blood cell count, unspecified; J45.909 Unspecified asthma, uncomplicated; K21.9 Gastro-esophageal reflux disease without esophagitis
CPT/HCPCS: 36415; 70450; 71260; 80048; 80053; 80202; 81001; 82948; 83605; 84145; 84484; 85025; 87040; 94640; 99284; J0696; J1100; J1200; J1650; J1817; J1885; J2270; J2405; J3370; J7030; Q9967

== ENCOUNTER 2019-07-24 20:21 | Emergency (ER) | payer SELFPAY ==
[~2019-07-24] VITALS: Ht 167.6 cm; Wt 86.2 kg
[~2019-07-24 20:21] MED LIST: ALBUTEROL0.63 MG/3 INH; ATENOLOL50 MG PO; LEVOTHYROXINE50 MCG PO; LYRICA50 MG PO; METFORMIN HCL500 MG PO; TYLENOL WITH C1 EACH PO; ZYRTEC10 M3 PO
[2019-07-24] MEDS ORDERED: ACETAMINOPHEN 325 MG TAB PO ONE (21:00)
[2019-07-24 21:33] LABS: STREPTOCOCCUS GRP A ANTIGEN NEGATIVE (NEGATIVE)
[2019-07-24 21:39] LABS: INFLUENZAE A&B ANTIGEN (RAPID) NEGATIVE (NEGATIVE)
--- NOTE | 2019-07-24 22:04 | Diagnostic Imaging Report ---
EXAMINATION: CHEST 2 VIEWS INDICATION: Fever, cough. COMPARISON: CT chest 02/12/2019. FINDINGS: TUBES and LINES: None. LUNGS: Lungs are moderately inflated. Mild bronchial thickening. There is no evidence of pneumonia or pulmonary edema. PLEURA: No pleural effusion or pneumothorax. HEART AND MEDIASTINUM: The cardiomediastinal silhouette is unremarkable. BONES AND SOFT TISSUES: No acute osseous lesion. Soft tissues are unremarkable. UPPER ABDOMEN: No free air under the diaphragm. There are cholecystectomy clips. IMPRESSION: Mild bronchial thickening, which may represent bronchitis in the setting of cough. No evidence of lobar pneumonia. Signed by: Dr. Alejandro Tsang MD on 07/24/2019 10:01 PM
--- NOTE | 2019-07-24 22:20 | NUR ---
OK WITH [facility] AT THIS FACILITY AT THIS TIME TO TRANSPORT LAB TO [facility].
[2019-07-24 23:11] VITALS: BP 112/70
--- NOTE | 2019-07-24 23:43 | NUR ---
PT DISCHARGED WITH ORDERS TO SELF QUARENTINE FOR TWO WEEKS AND THE NUMBER TO [facility] WAS GIVEN TO PT WITH INSTRUCTIONS TO CALL.
== END 2019-07-24 23:45 | disposition home or self-care (01) ==
LOC: ER 20:21
DX: R50.9 Fever, unspecified (principal); R05 Cough; J20.9 Acute bronchitis, unspecified; H60.12 Cellulitis of left external ear; H60.11 Cellulitis of right external ear; I10 Essential (primary) hypertension; E11.9 Type 2 diabetes mellitus without complications; J44.9 Chronic obstructive pulmonary disease, unspecified; M79.7 Fibromyalgia
CPT/HCPCS: 71046; 83518; 87070; 87400; 87633; 99284

== ENCOUNTER 2022-06-21 23:56 | Emergency (ER) | payer OTHER ==
[~2022-06-21] VITALS: Ht 167.6 cm; Wt 86.2 kg
[2022-06-22] MEDS ORDERED: MECLIZINE HCL 12.5 MG TAB PO ONE (00:45)
[2022-06-22 00:55] LABS: BASOPHILS % 0.3 % (0.0-1.0); EOSINOPHILS # (AUTO) 0.1 (0.0-0.4); HEMATOCRIT 41.4 % (34.2-44.1); HEMOGLOBIN 12.9 g/dL (12.0-16.0); LYMPHOCYTES # (AUTO) 1.2 (1.0-3.2); LYMPHOCYTES % 12.2 % (18.0-39.1); MEAN CORPUSCULAR HEMOGLOBIN 27.2 pg (28-32); MEAN CORPUSCULAR HGB CONC 31.2 g/dL (31-35); MEAN CORPUSCULAR VOLUME 87.2 fL (81-99); MONOCYTES # (AUTO) 0.5 (0.2-0.8); MONOCYTES % 4.9 % (4.4-11.3); NEUTROPHILS # (AUTO) 7.7 (2.1-6.9); NEUTROPHILS % 81.3 % (38.7-80.0); PLATELET COUNT 396 x10e3/uL (140-360); RED BLOOD COUNT 4.75 x10e6/uL (3.6-5.1); RED CELL DISTRIBUTION WIDTH 13.5 % (11.7-14.4)
[2022-06-22 01:11] LABS: CLARITY,URINE HAZY (CLEAR); COLOR,URINE YELLOW (YELLOW)
[2022-06-22 01:12] LABS: BACTERIA,URINE MANY /HPF; EPITHELIAL CELLS,URINE MANY /LPF; KETONES,URINE NEGATIVE (NEGATIVE); LEUKOCYTE ESTERASE ,URINE NEGATIVE (NEGATIVE); NITRITE,URINE NEGATIVE (NEGATIVE); PROTEIN,URINE DIPSTICK NEGATIVE (NEGATIVE); RBC,URINE 0-5 /HPF (0-5); URINE UROBILINOGEN 0.2 mg/dL (0.2 - 1); WBC,URINE (MAN) 0-5 /HPF (0-5)
[2022-06-22 01:15] LABS: ALBUMIN 3.4 g/dL (3.5-5.0); ALBUMIN/GLOBULIN RATIO 0.7 (0.8-2.0); ANION GAP 15.7 mmol/L (8-16); CALCIUM 9.3 mg/dL (8.4-10.2); CREATININE, SERUM 1.04 mg/dL (0.57-1.11); POTASSIUM 3.7 mmol/L (3.5-5.1)
[2022-06-22] MEDS ORDERED: MECLIZINE HCL12.5 MG PO (02:41)
== END 2022-06-22 03:13 | disposition home or self-care (01) ==
LOC: ER 06-22 00:02
DX: H81.10 Benign paroxysmal vertigo, unspecified ear (principal); I10 Essential (primary) hypertension; E11.65 Type 2 diabetes mellitus with hyperglycemia; J44.9 Chronic obstructive pulmonary disease, unspecified; M79.7 Fibromyalgia; E03.9 Hypothyroidism, unspecified; I50.9 Heart failure, unspecified; Z99.81 Dependence on supplemental oxygen; Z20.822 Contact with and (suspected) exposure to COVID-19
CPT/HCPCS: 36415; 70450; 80053; 81001; 84484; 85025; 99284; J8597; U0002

== ENCOUNTER 2023-12-19 21:38 | Emergency (ER) | payer OTHER ==
[~2023-12-19] VITALS: Ht 167.6 cm; Wt 86.2 kg
[~2023-12-19 21:38] MED LIST changes: +DOXYCYCLINE HY100 MG PO; +MECLIZINE HCL12.5 MG PO
[2023-12-19 21:50] VITALS: TEMP 98
[2023-12-19 22:00] VITALS: PULSE 80; RESP 18
[2023-12-19 22:03] LABS: BASOPHILS % 0.2 % (0.0-1.0); EOSINOPHILS # (AUTO) 0.1 (0.0-0.4); EOSINOPHILS % 0.7 % (0.0-6.0); HEMATOCRIT 40.4 % (34.2-44.1); HEMOGLOBIN 12.8 g/dL (12.0-16.0); LYMPHOCYTES # (AUTO) 1.5 (1.0-3.2); LYMPHOCYTES % 12.5 % (18.0-39.1); MEAN CORPUSCULAR HEMOGLOBIN 29.1 pg (28-32); MEAN CORPUSCULAR HGB CONC 31.7 g/dL (31-35); MEAN CORPUSCULAR VOLUME 91.8 fL (81-99); MONOCYTES # (AUTO) 0.7 (0.2-0.8); MONOCYTES % 5.6 % (4.4-11.3); NEUTROPHILS # (AUTO) 9.9 (2.1-6.9); NEUTROPHILS % 80.6 % (38.7-80.0); PLATELET COUNT 379 x10e3/uL (140-360); RED CELL DISTRIBUTION WIDTH 13.3 % (11.7-14.4); WHITE BLOOD COUNT 12.33 x10e3/uL (4.8-10.8)
[2023-12-19 22:20] LABS: ALBUMIN/GLOBULIN RATIO 1.3 (0.8-2.0); ANION GAP 14.3 mmol/L (8-16); BILIRUBIN,TOTAL 0.6 mg/dL (0.2-1.2); CALCIUM 9.5 mg/dL (8.4-10.2); CREATININE, SERUM 1.11 mg/dL (0.57-1.11); TOTAL PROTEIN 7.2 g/dL (6.5-8.1)
[2023-12-19 22:21] LABS: POTASSIUM 3.3 mmol/L (3.5-5.1)
[2023-12-19 22:45] VITALS: BP 124/82; PULSE 77; RESP 16; O2SAT 100
== END 2023-12-19 22:43 | disposition home or self-care (01) ==
LOC: ER 21:46
DX: M79.652 Pain in left thigh (principal); I10 Essential (primary) hypertension; E11.40 Type 2 diabetes mellitus with diabetic neuropathy, unspecified; J44.9 Chronic obstructive pulmonary disease, unspecified; I50.9 Heart failure, unspecified; I48.91 Unspecified atrial fibrillation; E03.9 Hypothyroidism, unspecified; M32.9 Systemic lupus erythematosus, unspecified; M79.7 Fibromyalgia
CPT/HCPCS: 36415; 80053; 83735; 85025; 99283

== ENCOUNTER → 2024-12-07 | Day surgery (SDC) | payer OTHER ==
[2024-12-03 15:57] LABS: BASOPHILS % 0.3 % (0.0-1.0); EOSINOPHILS % 1.5 % (0.0-6.0); LYMPHOCYTES % 22.0 % (18.0-39.1); MONOCYTES % 3.6 % (4.4-11.3); NEUTROPHILS % 72.3 % (38.7-80.0); RED CELL DISTRIBUTION WIDTH 13.4 % (11.7-14.4)
[2024-12-03 16:18] LABS: INR 0.85
[2024-12-03 16:25] LABS: EST GLOMERULAR FILTRATION RATE 76.0 ML/MIN (>=60)
[~2024-12-07] MED LIST changes: +ALBUTEROL0.63 MG/3 NEB; +ASPIRIN81 MG PO; +DICLOFENAC SODI75 MG PO; +FOLIC ACID0.4 MG PO; +GABAPENTIN300 MG PO; +GLUCOTROL XL10 MG PO; +HYDROCODON-ACE1 EAC9 PO; +IPRATROPIU0.2 MG/1 M INH; +LACTATED RINGER'S 1,000 ML ONE; +LIDOCAINE HCL 2% LOCAL INJ 5 ML SDV VIAL INJ ONE; +LISINOPRIL10 MG PO; +METOCLOPRAM5 MG/5 ML PO; +METOCLOPRAMIDE HCL 10 MG/2ML VIAL ONE; +MOUNJARO2.5 MG/0.5 SC; +ONDANSETRON HCL INJ 2MG/ML 2ML 2 MG/ML VIAL ONE; +PROPOFOL IV EMULSION 50 ML IV ONE; +SUCRALFATE1 GM PO; +TRELEGY ELLIPT1 EACH INH
[2024-12-07 15:50] VITALS: TEMP 97
[2024-12-07 16:20] VITALS: BP 110/68; PULSE 80; RESP 20; O2SAT 99
== END | disposition home or self-care (01) ==
LOC: OR 13:19
PROVIDERS: ATTEND Internal Medicine Gastroenterology
DX: Z12.11 Encounter for screening for malignant neoplasm of colon (principal); K31.7 Polyp of stomach and duodenum; K29.50 Unspecified chronic gastritis without bleeding; K21.9 Gastro-esophageal reflux disease without esophagitis; K62.5 Hemorrhage of anus and rectum; K44.9 Diaphragmatic hernia without obstruction or gangrene; K59.00 Constipation, unspecified; R63.4 Abnormal weight loss; K76.0 Fatty (change of) liver, not elsewhere classified; G47.33 Obstructive sleep apnea (adult) (pediatric); D64.9 Anemia, unspecified; I50.9 Heart failure, unspecified; M32.9 Systemic lupus erythematosus, unspecified; E11.22 Type 2 diabetes mellitus with diabetic chronic kidney disease; N18.2 Chronic kidney disease, stage 2 (mild); R42 Dizziness and giddiness; G62.9 Polyneuropathy, unspecified; R00.0 Tachycardia, unspecified; J44.9 Chronic obstructive pulmonary disease, unspecified; N39.0 Urinary tract infection, site not specified; M06.9 Rheumatoid arthritis, unspecified; F31.9 Bipolar disorder, unspecified; F41.9 Anxiety disorder, unspecified; F17.290 Nicotine dependence, other tobacco product, uncomplicated; Z88.1 Allergy status to other antibiotic agents; Z88.0 Allergy status to penicillin; Z88.8 Allergy status to other drugs, medicaments and biological substances; Z01.810 Encounter for preprocedural cardiovascular examination; Z01.812 Encounter for preprocedural laboratory examination; Z99.81 Dependence on supplemental oxygen; Z79.82 Long term (current) use of aspirin; Z79.84 Long term (current) use of oral hypoglycemic drugs; Z79.85 Long-term (current) use of injectable non-insulin antidiabetic drugs; Z79.899 Other long term (current) drug therapy; Z80.0 Family history of malignant neoplasm of digestive organs
CPT/HCPCS: 43239; G0105; 36415; 45378; 80048; 82948; 85025; 85610; 85730; 88104; 88112; 88305; 88312; 88342; 93005; J2003; J2405; J2765